=== PATIENT | male | born 1990 | race Caucasian/White ===

== ENCOUNTER 2019-05-05 14:15 | Inpatient (IN) | payer MEDICAID, OTHER ==
[~2019-05-05] VITALS: Ht 182.9 cm; Wt 83.9 kg
[~2019-05-05 14:15] MED LIST: CITA-106 PO; GABA-531 PO; LORA-1000 PO; TRAZ-252 PO
[2019-05-05] MEDS ORDERED: RISP.5 PO (14:46)
[2019-05-05] MEDS ORDERED: VENL25TA47 PO (14:46)
[2019-05-05 15:07] LABS: EOSINOPHILS % (AUTO) 5.4 % (1.0-6.0); HEMATOCRIT 45.8 % (41-53); HEMOGLOBIN 15.7 g/dL (13.5-17.5); LYMPHOCYTES # (AUTO) 1.9 K/uL (1.0-4.8); MEAN CORPUSCULAR HEMOGLOBIN 31.5 pg (26.0-34.0); MEAN CORPUSCULAR HGB CONC 34.3 G/dL (31.0-37.0); MEAN CORPUSCULAR VOLUME 92 fL (80-100); MONOCYTES # (AUTO) 0.6 K/uL (0.1-1.0); NEUTROPHILS # (AUTO) 5.7 K/uL (1.8-7.7); NEUTROPHILS % (AUTO) 64.6 % (40.0-70.0); PLATELET COUNT (AUTO) 272 K/uL (150-450); RED BLOOD CELL COUNT(AUTO) 4.99 MIL/uL (4.50-5.90); RED CELL DISTRIBUTION WIDTH 12.7 % (11.5-14.5)
[2019-05-05 15:22] LABS: ANION GAP 13 mmol/L (8-16); CALCIUM, TOTAL 8.7 mg/dL (8.8-10.5); CARBON DIOXIDE 24 mmol/L (22-29); CHLORIDE 103 mmol/L (98-107); CREATININE 0.84 mg/dL (0.60-1.30); GLOMERULAR FILTR. RATE CALC > 60 mL/min (>60); GLUCOSE,RANDOM 94 mg/dL (70-110); POTASSIUM 3.4 mmol/L (3.5-5.1); SODIUM SERUM 140 mmol/L (136-145); UREA NITROGEN, BLOOD 8 mg/dL (7-18)
[2019-05-05 15:28] LABS: ALANINE AMINOTRANSFERASE 28 U/L (12-78); ALBUMIN 3.9 g/dL (3.4-5.0); ALKALINE PHOSPHATASE 73 U/L (46-116); ASPARTATE AMINOTRANSFERASE 26 U/L (15-37); BILIRUBIN,TOTAL 0.4 mg/dL (0.1-1.0); TOTAL PROTEIN, SERUM 7.5 g/dL (6.4-8.2)
[2019-05-05 15:29] LABS: AMPHET/METH SCREEN,URINE NEGATIVE (NEGATIVE); BARBITURATE SCREEN, URINE NEGATIVE (NEGATIVE); BENZODIAZEPINES SCREEN,URINE NEGATIVE (NEGATIVE); CANNABINOID SCREEN,URINE POSITIVE (NEGATIVE); COCAINE SCREEN,URINE NEGATIVE (NEGATIVE); METHADONE SCREEN, URINE NEGATIVE (NEGATIVE); OPIATE SCREEN,URINE NEGATIVE (NEGATIVE)
[2019-05-05 15:38] LABS: PHENCYCLIDINE SCREEN,URINE NEGATIVE (NEGATIVE)
[2019-05-05] MEDS ORDERED: LORazepam 2 MG TABLET PO PRN (17:00)
[2019-05-05] MEDS ORDERED: HALOPERIDOL 5 MG TABLET PO PRN (17:00)
[2019-05-05] MEDS ORDERED: ZOLPIDEM TARTRATE 10 MG TABLET PO PRN (17:00)
[2019-05-05] MEDS ORDERED: CYANOCOBALAMIN 1,000 MCG/ML VIAL IM ONE (17:00)
[2019-05-05 17:39] LABS: APPEARANCE,URINE CLEAR (CLEAR); BILIRUBIN,URINE NEGATIVE (NEGATIVE); GLUCOSE, URINE (UA) NEGATIVE (NEGATIVE); KETONES,URINE NEGATIVE (NEGATIVE); LEUKOCYTE ESTERASE ,URINE NEGATIVE (NEGATIVE); NITRATE,URINE NEGATIVE (NEGATIVE); OCCULT BLOOD,URINE NEGATIVE (NEGATIVE); PH,URINE 5.5 (5.0-8.0); PROTEIN,URINE NEGATIVE (NEGATIVE); UROBILINOGEN,URINE 0.2 mg/dL (<=1.0)
[2019-05-05 20:00] VITALS: BP 155/92
[2019-05-05] MEDS: THIAMINE HCL 100 MG TABLET PO SCH (20:30)
[2019-05-05 21:05] VITALS: BP 125/75
[2019-05-05 21:46] VITALS: BP 123/89
[2019-05-05 22:07] VITALS: BP 155/92
[2019-05-05 22:10] VITALS: BP 113/73
[2019-05-05 23:15] VITALS: BP 110/70
[2019-05-06] VITALS (9 sets, daily range): BP systolic 115–143; BP diastolic 66–94
[2019-05-06] MEDS ORDERED: LORazepam 2 MG TABLET PO PRN (07:00)
[2019-05-06 07:12] LABS: CHOL/HDL RATIO 3.1 (4.2-7.3); CHOLESTEROL 214 mg/dL (131-200); FREE T4 (FREE THYROXINE) 0.93 ng/dL (0.76-1.46); HDL CHOLESTEROL 69 mg/dL (40-60); LDL CHOL (CALC.) 123 mg/dL (0-130); TRIGLYCERIDES 110 mg/dL (15-150)
[2019-05-06] MEDS: LORazepam 2 MG TABLET PO SCH ×4 (09:00→21:00)
[2019-05-06] MEDS: MULTIVITAMINS WITH MINERALS, THERAPEUTIC TABLET PO SCH (09:01)
[2019-05-06] MEDS: FOLIC ACID 1 MG TABLET PO SCH (09:01)
[2019-05-06] MEDS: THIAMINE HCL 100 MG TABLET PO SCH ×2 (09:01→16:56)
[2019-05-06] MEDS ORDERED: CloNIDine HCL 0.1 MG TABLET PO PRN (16:15)
[2019-05-06] MEDS ORDERED: ALBUTEROL SULFATE HFA 90 MCG/PUFF 8 GM INHALER IH PRN (16:15)
[2019-05-06] MEDS ORDERED: MAGNESIUM HYDROXIDE SUSPENSION 30 ML UDCUP PO PRN (16:15)
[2019-05-06] MEDS ORDERED: NICOTINE 14 MG/24 HOUR PATCH TD PRN (16:15)
[2019-05-06] MEDS ORDERED: PETROLATUM,WHITE 28 GM JELLY TP PRN (16:15)
[2019-05-06] MEDS ORDERED: DOCUSATE SODIUM 100 MG CAPSULE PO PRN (16:15)
[2019-05-06] MEDS ORDERED: ACETAMINOPHEN 325 MG TABLET PO PRN (16:15)
[2019-05-06] MEDS ORDERED: GuaiFENesin/D-METHORPHAN [SUGAR-FREE] 200-20MG/10 ML SYRUP UDCUP PO PRN (16:15)
[2019-05-06] MEDS ORDERED: ONDANSETRON HCL 4 MG TABLET PO PRN (16:15)
[2019-05-06] MEDS ORDERED: LOPERAMIDE HCL 2 MG CAPSULE PO PRN (16:15)
[2019-05-06] MEDS ORDERED: IBUPROFEN 400 MG TABLET PO PRN (16:15)
[2019-05-06] MEDS ORDERED: MAG HYDROX/AL HYDROX/SIMETH ES 30 ML SUSPENSION UDCUP PO PRN (16:15)
[2019-05-07] VITALS: BP 123/67
[2019-05-07] MEDS: LORazepam 2 MG TABLET PO SCH ×3 (09:00→16:17)
[2019-05-07 09:44] VITALS: BP 119/77
[2019-05-07] MEDS: THIAMINE HCL 100 MG TABLET PO SCH ×2 (10:13→16:19)
[2019-05-07] MEDS: FOLIC ACID 1 MG TABLET PO SCH (10:13)
[2019-05-07] MEDS: MULTIVITAMINS WITH MINERALS, THERAPEUTIC TABLET PO SCH (10:13)
[2019-05-07 11:53] VITALS: BP 121/74
[2019-05-07] MEDS ORDERED: VENL-66 PO (16:36)
[2019-05-07] MEDS ORDERED: VENL-67 PO (16:36)
[2019-05-07] MEDS: RisperiDONE 1 MG TABLET PO SCH (20:22)
[2019-05-07 22:02] VITALS: BP 124/80
[2019-05-07 22:05] VITALS: BP 118/76
[2019-05-08 06:52] VITALS: BP 111/75
[2019-05-08] MEDS ORDERED: LORazepam 1 MG TABLET PO PRN (07:00)
[2019-05-08 08:42] VITALS: BP 110/81
[2019-05-08] MEDS ORDERED: LORazepam 1 MG TABLET PO SCH (09:00)
[2019-05-08] MEDS: RisperiDONE 1 MG TABLET PO SCH ×3 (09:00→20:27)
[2019-05-08] MEDS: FOLIC ACID 1 MG TABLET PO SCH (10:02)
[2019-05-08] MEDS: THIAMINE HCL 100 MG TABLET PO SCH ×2 (10:02→17:32)
[2019-05-08] MEDS: MULTIVITAMINS WITH MINERALS, THERAPEUTIC TABLET PO SCH (10:02)
[2019-05-08 13:08] VITALS: BP 112/79
[2019-05-08 16:00] VITALS: BP 136/91
[2019-05-08 16:30] VITALS: BP 136/91
[2019-05-09] MEDS ORDERED: LORazepam 1 MG TABLET PO PRN (07:00)
[2019-05-09 07:44] LABS: CHOL/HDL RATIO 2.6 (4.2-7.3); FREE T4 (FREE THYROXINE) 1.09 ng/dL (0.76-1.46); THYROID STIMULATING HORMONE 1.79 uIU/mL (0.36-3.74)
[2019-05-09 09:00] VITALS: BP 130/85
[2019-05-09 09:07] VITALS: BP 130/85
[2019-05-09] MEDS: THIAMINE HCL 100 MG TABLET PO SCH ×2 (09:28→16:17)
[2019-05-09] MEDS: RisperiDONE 1 MG TABLET PO SCH (09:28)
[2019-05-09] MEDS: MULTIVITAMINS WITH MINERALS, THERAPEUTIC TABLET PO SCH (09:28)
[2019-05-09] MEDS: FOLIC ACID 1 MG TABLET PO SCH (09:28)
[2019-05-09 16:10] VITALS: BP 135/84
[2019-05-09 16:30] VITALS: BP 139/86
[2019-05-09] MEDS: RisperiDONE 2 MG TABLET PO SCH (20:19)
[2019-05-10 08:52] VITALS: BP 140/92
[2019-05-10 09:35] VITALS: BP 140/92
[2019-05-10] MEDS: FOLIC ACID 1 MG TABLET PO SCH (09:51)
[2019-05-10] MEDS: MULTIVITAMINS WITH MINERALS, THERAPEUTIC TABLET PO SCH (09:51)
[2019-05-10] MEDS: THIAMINE HCL 100 MG TABLET PO SCH ×2 (09:51→16:03)
[2019-05-10] MEDS: RisperiDONE 2 MG TABLET PO SCH (09:51)
[2019-05-10] MEDS ORDERED: RISP2 PO (14:33)
== END 2019-05-10 16:45 | disposition left against medical advice (07) | DRG 750 ==
LOC: EMS 14:15 → 3EC 19:00
DX: F20.0 Paranoid schizophrenia (principal); R45.850 Homicidal ideations; E78.5 Hyperlipidemia, unspecified; E87.6 Hypokalemia; F10.10 Alcohol abuse, uncomplicated; F12.10 Cannabis abuse, uncomplicated; F41.9 Anxiety disorder, unspecified; F17.210 Nicotine dependence, cigarettes, uncomplicated; Z78.1 Physical restraint status; Z79.899 Other long term (current) drug therapy; Z91.14 Patient's other noncompliance with medication regimen; Z71.41 Alcohol abuse counseling and surveillance of alcoholic; Z71.51 Drug abuse counseling and surveillance of drug abuser
CPT/HCPCS: 84436; 84439; 84443; G0480